=== PATIENT | male | born 1950 | race Caucasian/White ===

== ENCOUNTER → 2017-05-05 | Outpatient (CLI) | payer MEDICARE, BC ==
--- NOTE | 2017-05-05 23:09 | MR ---
EXAMINATION TYPE: MR lumbar spine wo con DATE OF EXAM: 05/05/2017 COMPARISON: NONE HISTORY: LBP into rt buttock x 1-2 mos, no trauma/surgery; did not bring outside xrays TECHNIQUE: Multiplanar, multisequence images of the lumbar spine were acquired. Findings The lumbar vertebra have normal alignment. There is narrowing of disc spaces throughout the lumbar sp ine with spurring of the endplates. There is moderate facet arthropathy at L3-4 and L4-5. There is a mild relative spinal stenosis. This is more noticeable at L3-4. There is a rudimentary disc at S1-S2. The neuroforamina are fairly well-maintained. There is no compression fracture. There is no paraspin al mass. I see no focal bone destruction. IMPRESSION: Multilevel spondylosis. No fracture. Mild spinal stenosis at L3-4 and L4-5. This is worse at L3-4. Sm all posterior disc herniations from L3 to S1.
== END | disposition home or self-care (01) ==
LOC: RADMRIMAIN 20:14
PROVIDERS: ATTEND Orthopaedic Surgery
DX: M48.061 Spinal stenosis, lumbar region without neurogenic claudication (principal); M51.27 Other intervertebral disc displacement, lumbosacral region; M47.816 Spondylosis without myelopathy or radiculopathy, lumbar region
CPT/HCPCS: 72148

== ENCOUNTER → 2024-02-24 | Outpatient (CLI) | payer MEDICARE, BC ==
--- NOTE | 2024-02-24 09:24 | MR ---
INDICATION: Patient age:Male; 73 years old; Reason for study: H90.3 SENSORINEURAL HEARING LOSS, BILATERAL; PHH. COMPARISON: None. TECHNIQUE: Multi planar, multi sequence imaging was performed through the brain. Specialized thin s equences were obtained through the internal auditory canals. Pre-and post gadolinium sequences were obtained as well after administration of 9 cc of Gadavist. FINDINGS: The taylor-white junctions, ventricular system, basal cisterns appear unremarkable. Age-appr opriate cerebral parenchymal volume. Diffusion-weighted imaging shows no evidence of restricted diffu charles. Foci of high T2/FLAIR signal intensity are seen within the periventricular and subcortical wh ite matter. After administration of gadolinium, no abnormal enhancement is seen. Bilateral aphakia. Mild mucosal thickening in the ethmoid sinuses. Minimal mucosal thickening of the left maxillary sinu s. The internal auditory canal sequences demonstrate no significant irregularity. The 7th cranial nerve s, 8 cranial nerves, and cerebellar pontine angles appear unremarkable. After the administration alin olinium, no abnormal enhancement is seen within the internal auditory canals. IMPRESSION: 1. No evidence of intracranial mass nor acute/subacute CVA. 2. Nonspecific white matter changes, likely related to small vessel ischemic disease. 3. No evidence of internal auditory canal abnormality. [facility], , 02/24/2024 9:22 AM
== END | disposition home or self-care (01) ==
LOC: RADMRIMAIN 07:57
PROVIDERS: ATTEND Otolaryngology
CPT/HCPCS: 70553

== ENCOUNTER 2024-09-06 05:32 | Day surgery (SDC) | payer BC, MEDICARE ==
[2024-09-06 06:26] VITALS: RESP 16; TEMP 97.8
[2024-09-06] MEDS ORDERED: SODIUM CHLORIDE 0.9% 500 ML 500 ML IV SCH (06:30)
[2024-09-06] MEDS: fentaNYL (PF) 50 MCG/ML 2 ML AMP IVP ONE (07:18)
[2024-09-06] MEDS: BENZOCAINE SPRAY 1 EACH MUCOUS MEM ONE (07:18)
[2024-09-06] MEDS: MIDAZOLAM 2 MG/2 ML VIAL IVP ONE ×2 (07:18→07:21)
[2024-09-06] MEDS: SODIUM CHLORIDE 0.9% 500 ML 500 ML IV ONE (07:32)
--- NOTE | 2024-09-06 07:42 | P.PCN ---
Date of Procedure: 09/06/24 Description of Procedure: Indication: CVA Procedure Description: After explaining the procedure to the patient, it's risk and complications, blood pressure, heart rate and O2 saturation were monitored. The throat was sprayed with Cetacaine. Patient received 3 mg intravenous Versed, 50 mcg intravenous fentanyl. The probe was introduced into the esophagus without difficulty. Images were obtained. Following that, the probe was removed. There was no immediate complication. Findings: Left atrial size is normal, left atrial appendage is normal. Left ventricular size and systolic function are normal. The aortic valve the tricuspid valve with normal appearance. Mild thickening of the mitral valve leaflets was noted. The tricuspid valve is normal. No pericardial effusion was noted. Ascending thoracic aorta appears to be normal. Contrast bubble study revealed no shunting across the interatrial septum with Valsalva maneuver. Doppler: Pulse wave and color Doppler were obtained, and revealed mild tricuspid with mild to moderate mitral regurgitation. There was no shunting by color Doppler study Conclusion: 1. Normal left ventricular size and systolic function 2. Normal appearance of the left atrial appendage 3. Mild to moderate mitral with mild tricuspid regurgitation 4. No shunting across the interatrial septum 5. Normal appearance of the descending thoracic aorta Duration of sedation: 12 minutes
[2024-09-06 08:46] VITALS: BP 120/69; PULSE 67
[2024-09-06] MEDS ORDERED: PIOGLITAZONE 30 MG TAB PO SCH (09:00)
[2024-09-07] MEDS ORDERED: CLOPIDOGREL 75 MG TAB PO SCH (09:00)
[2024-09-07] MEDS ORDERED: ATORVASTATIN 10 MG TAB PO SCH (09:00)
[2024-09-07] MEDS ORDERED: lisinopriL 20 MG TAB PO SCH (09:00)
[2024-09-07] MEDS ORDERED: amLODIPine 5 MG TAB PO SCH (09:00)
== END 2024-09-06 08:35 | disposition home or self-care (01) ==
LOC: CATHCVL 05:32
PROVIDERS: ATTEND Internal Medicine Interventional Cardiology
DX: I08.1 Rheumatic disorders of both mitral and tricuspid valves (principal); I63.9 Cerebral infarction, unspecified; E78.2 Mixed hyperlipidemia; I10 Essential (primary) hypertension; E11.9 Type 2 diabetes mellitus without complications; Z82.49 Family history of ischemic heart disease and other diseases of the circulatory system; Z79.02 Long term (current) use of antithrombotics/antiplatelets; Z79.899 Other long term (current) drug therapy
CPT/HCPCS: 93312; 93320; 93325; 99152; J2250; J3010